=== PATIENT | female | born 1985 | race Caucasian/White ===

== ENCOUNTER 2018-11-28 15:02 | Emergency (ER) | payer MEDICAID, OTHER ==
[~2018-11-28] VITALS: Ht 157.5 cm; Wt 45.8 kg
[2018-11-28 16:22] VITALS: BP 113/80
--- NOTE | 2018-11-28 18:00 | NUR ---
PT AMBULATES TO BED 12
--- NOTE | 2018-11-28 18:45 | NUR ---
PATIENT PRESENTS TO ED WITH C/O LOWER BACK PAIN RADIATING TO LEFT HIP X 2 DAYS [facility] PAIN WITH THROWING A DUFFLE BAG OVER A FENCE DENIES ANY OBVIOUS INJURY, DENIES DYSURIA OR VAG DC .. DENIES N/V/D; SKIN IS PINK/WARM/DRY; AAOX4 WITH EVEN AND STEADY GAIT; LUNGS CLEAR BL; HR EVEN AND REGULAR; PT DENIES ANY FEVER, CP, SOB, OR COUGH AT THIS TIME; PATIENT STATES PAIN OF 8/10 AT THIS TIME; VSS; PATIENT POSITIONED FOR COMFORT; HOB ELEVATED; BEDRAILS UP X2; BED DOWN. ER MD MADE AWARE OF PT STATUS.
--- NOTE | 2018-11-28 18:46 | NUR ---
ULTRASOUND AT BEDSIDE
[2018-11-28 18:53] LABS: APPEARANCE,URINE CLEAR (CLEAR); BILIRUBIN,URINE NEGATIVE (NEGATIVE); BLOOD, URINE TRACE-L (NEGATIVE); COLOR,URINE YELLOW (YELLOW); LEUKOCYTE ESTERASE ,URINE 2+ (NEGATIVE); NITRITE, URINE NEGATIVE (NEGATIVE); UGLUCOSE NEGATIVE (NEGATIVE)
[2018-11-28 18:57] LABS: RBC,URINE 0-5 (RARE) /HPF (0-5)
[2018-11-28 18:58] LABS: WBC,URINE 60-80 /HPF (0-5)
[2018-11-28 19:07] LABS: BASOPHILS % (AUTO) 0.5 % (0.0-2.0); EOSINOPHILS # (AUTO) 0.1 K/uL (0-0.4); EOSINOPHILS % (AUTO) 0.7 % (0.0-4.0); HEMATOCRIT 36.4 % (36-48); HEMOGLOBIN 12.3 g/dL (12.0-16.0); LYMPHOCYTES # (AUTO) 2.2 K/uL (2.5-16.5); LYMPHOCYTES % (AUTO) 25.5 % (20.5-51.1); MEAN CORPUSCULAR HEMOGLOBIN 28 pg (27-31); MEAN CORPUSCULAR HGB CONC 34 g/dL (33-37); MEAN CORPUSCULAR VOLUME 82.8 fL (80-94); MONOCYTES # (AUTO) 0.6 K/uL (0.8-1.0); MONOCYTES % (AUTO) 7.2 % (1.7-9.3); NEUTROPHILS # (AUTO) 5.7 K/uL (1.8-7.7); NEUTROPHILS % (AUTO) 66.1 % (42.2-75.2); PLATELET COUNT (AUTO) 271 K/uL (140-450); RED BLOOD CELL COUNT(AUTO) 4.39 MIL/uL (4.20-5.40); WHITE BLOOD COUNT (AUTO) 8.6 K/uL (4.8-10.8)
--- NOTE | 2018-11-28 19:20 | NUR ---
pt sitting up in bed, vss
[2018-11-28 19:40] VITALS: BP 113/80
--- NOTE | 2018-11-28 19:40 | NUR ---
Patient discharged with v/s stable. Written and verbal after care instructions given and explained. Patient alert, oriented and verbalized understanding of instructions. Ambulatory with steady gait. All questions addressed prior to discharge. ID band removed. Patient advised to follow up with PMD. Rx of keflex and tylenol was given. Patient educated on indication of medication including possible reaction and side effects. Opportunity to ask questions provided and answered. pt left without taking her d/c paperwork and signing. er md made aware.
--- NOTE | 2018-11-28 22:04 | NUR ---
PT RETURNED FOR D/C PAPERWORK. GIVEN AND PROVIDED DISCHARGE EDUCATION. Patient discharged with v/s stable. Written and verbal after care instructions given and explained. Patient alert, oriented and verbalized understanding of instructions. Ambulatory with steady gait. All questions addressed prior to discharge. ID band removed. Patient advised to follow up with PMD. Rx of KEFLEX, TYLENOL given. Patient educated on indication of medication including possible reaction and side effects. Opportunity to ask questions provided and answered.
== END 2018-11-28 19:40 | disposition home or self-care (01) ==
LOC: MED 15:02
DX: O9A.212 Injury, poisoning and certain other consequences of external causes complicating pregnancy, second trimester (principal); S39.012A Strain of muscle, fascia and tendon of lower back, initial encounter; O23.42 Unspecified infection of urinary tract in pregnancy, second trimester; Z3A.17 17 weeks gestation of pregnancy; X50.0XXA Overexertion from strenuous movement or load, initial encounter; Y93.89 Activity, other specified; Y92.89 Other specified places as the place of occurrence of the external cause; Y99.8 Other external cause status
CPT/HCPCS: 36415; 76805; 81001; 81025; 84702; 85025; 86900; 86901; 87086; 87186; 99284; Q0092

== ENCOUNTER 2018-11-28 21:41 | Emergency (ER) | payer SELFPAY ==
--- NOTE | 2018-11-28 22:01 | NUR ---
Ruth huggins in ED - 11/28/18 at 2203 by ROLA PT RETURNED FOR PREVIOUS D/C PAPERWORK. PT GIVEN D/C INSTRUCTIONS AND RX.
--- NOTE | 2018-11-28 22:02 | NUR ---
Note bryantone in EDM - 11/28/18 at 2203 by ROLA Patient discharged with v/s stable. Written and verbal after care instructions given and explained. Patient alert, oriented and verbalized understanding of instructions. Ambulatory with steady gait. All questions addressed prior to discharge. ID band removed. Patient advised to follow up with PMD. Rx of KEFLEX, TYLENOL given. Patient educated on indication of medication including possible reaction and side effects. Opportunity to ask questions provided and answered.
--- NOTE | 2018-11-28 22:02 | NUR ---
PATIENT LEFT WITHOUT BEING SEEN BY DR. LAURA. NO FURTHER CARE PROVIDED FOR PATIENT.
--- NOTE | 2018-11-28 22:15 | NUR ---
THIS CHART6 WAS ENTERED IN ERROR.
--- NOTE | 2018-12-01 16:02 | NUR ---
patient urine culture returned positive for e coli c and s report showed susceptability to all antibiotics no script given. No answer at phone number given.
== END 2018-11-28 22:02 | disposition left against medical advice (07) ==
LOC: MED 21:41
DX: Z53.21 Procedure and treatment not carried out due to patient leaving prior to being seen by health care provider (principal)

== ENCOUNTER 2021-08-16 20:17 | Emergency (ER) | payer SELFPAY ==
[~2021-08-16] VITALS: Ht 162.6 cm; Wt 47.2 kg
[2021-08-16 20:23] VITALS: BP 107/62
[2021-08-16] MEDS ORDERED: ONDANSETRON 4 MG ODT PO ONE (21:25)
--- NOTE | 2021-08-16 21:35 | NUR ---
ultrasound at bedside.
[2021-08-16 21:36] LABS: APPEARANCE,URINE SL CLOUDY (CLEAR); BILIRUBIN,URINE NEGATIVE (NEGATIVE); BLOOD, URINE NEGATIVE (NEGATIVE); COLOR,URINE YELLOW (YELLOW); LEUKOCYTE ESTERASE ,URINE 1+ (NEGATIVE); NITRITE, URINE POSITIVE (NEGATIVE); PH,URINE 6.5 (5.0-9.0); UGLUCOSE NEGATIVE (NEGATIVE)
[2021-08-16 21:37] LABS: BASOPHILS % (AUTO) 0.5 % (0.0-2.0); EOSINOPHILS # (AUTO) 0.1 K/uL (0-0.4); EOSINOPHILS % (AUTO) 1.2 % (0.0-4.0); HEMATOCRIT 34.1 % (36-48); HEMOGLOBIN 11.5 g/dL (12.0-16.0); LYMPHOCYTES # (AUTO) 1.1 K/uL (2.5-16.5); LYMPHOCYTES % (AUTO) 15.4 % (20.5-51.1); MEAN CORPUSCULAR HEMOGLOBIN 27 pg (27-31); MEAN CORPUSCULAR HGB CONC 34 g/dL (33-37); MEAN CORPUSCULAR VOLUME 81.2 fL (80-94); MONOCYTES # (AUTO) 0.5 K/uL (0.8-1.0); MONOCYTES % (AUTO) 7.3 % (1.7-9.3); NEUTROPHILS # (AUTO) 5.2 K/uL (1.8-7.7); NEUTROPHILS % (AUTO) 75.6 % (42.2-75.2); PLATELET COUNT (AUTO) 215 K/uL (140-450); RED CELL DISTRIBUTION WIDTH 13.8 % (11.6-13.7); WHITE BLOOD COUNT (AUTO) 6.9 K/uL (4.8-10.8)
[2021-08-16] MEDS ORDERED: cefTRIAXone 1,000 MG in LIDOCAINE MPF 1% 2.1 ML IM ONE ×2 (21:45→22:15)
[2021-08-16 21:52] LABS: ALBUMIN 3.2 g/dL (3.4-5.0); ANION GAP 8.3 (8-16); CARBON DIOXIDE 28.7 mmol/L (21-32); CREATININE 0.6 mg/dL (0.6-1.3); TOTAL BILIRUBIN 0.7 mg/dL (0.0-1.0)
[2021-08-16 21:53] LABS: RBC,URINE 0-5 /HPF (0-5); WBC,URINE TOO MANY TO COUNT /HPF (0-5)
[2021-08-16 21:55] LABS: URINE AMORPHOUS URATE 1+ /HPF (None Seen)
[2021-08-16] MEDS ORDERED: LIDOCAINE MPF 1% 5 ML ONE (22:25)
[2021-08-16] MEDS ORDERED: cefTRIAXone 1,000 MG VIAL ONE (22:25)
[2021-08-16] MEDS ORDERED: PREN-13 PO (22:39)
[2021-08-16] MEDS ORDERED: CEPH-588 PO (22:39)
[2021-08-16] MEDS ORDERED: DOXY1TCP PO (22:39)
[2021-08-16 22:57] VITALS: BP 99/56
--- NOTE | 2021-08-16 22:57 | NUR ---
Patient discharged with v/s stable. Written and verbal after care instructions given and explained. Patient alert, oriented and verbalized understanding of instructions. Ambulatory with steady gait. All questions addressed prior to discharge. ID band removed. Patient advised to follow up with PMD. Rx of keflex, doxylamine/pyroxidine hcl, and vitamins tablet given. Patient educated on indication of medication including possible reaction and side effects. Opportunity to ask questions provided and answered.
== END 2021-08-16 22:57 | disposition home or self-care (01) ==
LOC: MED 20:17
DX: O21.8 Other vomiting complicating pregnancy (principal); O23.41 Unspecified infection of urinary tract in pregnancy, first trimester; O99.011 Anemia complicating pregnancy, first trimester; Z3A.01 Less than 8 weeks gestation of pregnancy
CPT/HCPCS: 36415; 76801; 80053; 81001; 81025; 83690; 84702; 85025; 87086; 96372; 99284; J0696; J2001; Q0092; Q0162